=== PATIENT | male | born 1945 | race Caucasian/White ===

== ENCOUNTER 2023-06-12 14:24 | Emergency (ER) | payer OTHER, MEDICARE | END 2023-06-12 17:35 | disposition home or self-care (01) | LOC: NAV ERS 14:24 | DX: S22.41XA Multiple fractures of ribs, right side, initial encounter for closed fracture (principal); E78.00 Pure hypercholesterolemia, unspecified; W01.0XXA Fall on same level from slipping, tripping and stumbling without subsequent striking against object, initial encounter ==